=== PATIENT | male | born 1950 | race Two or more races ===

== ENCOUNTER 2019-03-08 06:44 | Emergency (ER) | payer SELFPAY ==
[~2019-03-08] VITALS: Ht 162.6 cm; Wt 72.6 kg
[2019-03-08] MEDS ORDERED: Methocarbamol 750mg tab ORAL ONE ×2 (06:45→06:51)
[2019-03-08] MEDS ORDERED: Acetaminophen 500mg (ES) tab ORAL ONE ×3 (06:45→06:54)
[2019-03-08 06:48] VITALS: BP 157/80
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
[2019-03-08] MEDS ORDERED: IBUPROFEN600 MG ORAL (09:14)
[2019-03-08] MEDS ORDERED: ROBAXIN-750750 MG PO (09:14)
[2019-03-08] MEDS ORDERED: LIDODERM700 M1 TOPIC (09:14)
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
[2019-03-08 09:30] VITALS: BP 125/79
== END 2019-03-08 09:30 | disposition home or self-care (01) ==
LOC: EDBD 06:44 → EMR 07:30
DX: S39.012A Strain of muscle, fascia and tendon of lower back, initial encounter (principal); V43.62XA Car passenger injured in collision with other type car in traffic accident, initial encounter; Y92.411 Interstate highway as the place of occurrence of the external cause; M48.00 Spinal stenosis, site unspecified
CPT/HCPCS: 70450; 72125; 72128; 72131; 99284